=== PATIENT | male | born 1995 | race Caucasian/White ===

== ENCOUNTER 2017-07-12 18:37 | Emergency (ER) | payer OTHER ==
--- NOTE | 2017-07-12 20:04 | ED Physician Documentation ---
PD HPI BACK INJURY - Stated complaint Stated Complaint: BACK PX - History obtained from History obtained from: Patient - History of Present Illness Location: Right, Both, Lower Type of injury: Other (he was lifting about 350 lbs few days ago and felt onset of low back pain when he twisted/ not completely straight with it. Has been hurting since.) Timing - onset: How many days ago (few) Timing - duration: Days Timing - details: Waxing and waning Quality: Pain, Spasm Associated symptoms: No: Fever, Weakness, Numbness, Incontinent of urine Similar symptoms before: Has not had sx before Recently seen: Clinic (seen at [facility] and Rx Ibuprofen and chiropractic. Was improved some and then hurt more when tried to bend over and pick something light up today.) Review of Systems Constitutional: denies: Fever, Chills GI: denies: Abdominal Pain, Nausea, Vomiting : denies: Incontinent Musculoskeletal: reports: Back pain. denies: Neck pain Neurologic: denies: Focal weakness, Numbness, Near syncope PD PAST MEDICAL HISTORY - Present Medications Home Medications: Ambulatory Orders Medication Instructions Recorded Confirmed HYDROcod/ACETAM 5/325 [[place] 5/325] 1 tab PO Q6H PRN #15 tablet 07/12/17 Methocarbamol [Robaxin] 500 mg PO Q6H PRN #25 tablet 07/12/17 - Allergies Allergies/Adverse Reactions: Allergies Allergy/AdvReac Type Severity Reaction Status Date / Time No Known Drug Allergies Allergy Verified 07/12/17 18:51 Results - Vitals Vitals: Oxygen O2 Source Room air - Rads (name of study) lumbar Radiology: Prelim report reviewed, EMP read contemporaneously (no acute findings ) PD MEDICAL DECISION MAKING - ED course Complexity details: considered differential, d/w patient Departure - Departure Disposition: 01 Home, Self Care Clinical Impression: Acute lumbar myofascial strain Qualifiers: Encounter type: initial encounter Qualified Code(s): S39.012A - Strain of muscle, fascia and tendon of lower back, initial encounter Clinical Impression: (Ruled Out): Compression fracture Condition: Stable Record reviewed to determine appropriate education?: Yes Instructions: ED Sprain Strain Lumbar Prescriptions: HYDROcod/ACETAM 5/325 [[place] 5/325] 1 tab PO Q6H PRN #15 tablet PRN Reason: Pain Methocarbamol [Robaxin] 500 mg PO Q6H PRN #25 tablet PRN Reason: Spasms Comments: Light duty with limited push pull and bending as well as lifting for the next week. Continue the previously prescribed ibuprofen 2-3 times a day. Add Robaxin as needed for spasms and stiffness. Heat and gentle stretching for the low back physical treatment such as massage and chiropractic are great. Add hydrocodone if needed for back pain. Follow-up with your primary care over the next few days for reevaluation. Forms: Activity restrictions Discharge Date/Time: 07/12/17 21:10
[2017-07-12] MEDS ORDERED: HYDROcod/ACET 5/325 Prepack 6 PO ONE ×2 (20:34→20:47)
[2017-07-12] MEDS ORDERED: METHOCARBAMOL 500 MG TABLET PO STA (20:34)
[2017-07-12] MEDS ORDERED: ACETAMINOPHEN 325 MG TABLET PO STA (20:34)
[2017-07-12] MEDS ORDERED: ACETAMINOPHEN 325 MG TABLET PO ONE (20:47)
[2017-07-12] MEDS ORDERED: METHOCARBAMOL 500 MG TABLET PO ONE (20:48)
--- NOTE | 2017-07-12 21:08 | XRAY Preliminary Report ---
Exam: XR LUMBAR SPINE 2 VIEW IMPRESSION: Normal lumbar spine radiography. [facility] SITE ID: [id number]
[2017-07-12 21:10] VITALS: BP 127/78
--- NOTE | 2017-07-12 21:18 | XRAY Report ---
EXAM: LUMBOSACRAL SPINE RADIOGRAPHY EXAM DATE: 07/12/2017 09:00 PM. CLINICAL HISTORY: Low back pain after heavy lifting today. COMPARISONS: None. TECHNIQUE: 2 views. FINDINGS: Alignment: Normal. No spondylolisthesis or scoliosis. Bones: Five pdz-ctd-ovapdpt lumbar vertebral bodies are present. No fractures or bone lesions. Disks: Normal. Disk heights are maintained. Facets: No degenerative changes. Sacroiliac Joints: Unremarkable. Soft Tissues: Normal. The visualized bowel gas pattern is normal. IMPRESSION: Normal lumbar spine radiography. [facility] Referring Provider Line: [phone] SITE ID: [id number]
== END 2017-07-12 21:10 | disposition home or self-care (01) ==
LOC: ED 18:37
DX: S39.012A Strain of muscle, fascia and tendon of lower back, initial encounter (principal); X50.9XXA Other and unspecified overexertion or strenuous movements or postures, initial encounter
CPT/HCPCS: 72100; 99283; A9270

== ENCOUNTER 2018-01-02 10:06 | Emergency (ER) | payer OTHER ==
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
[2018-01-02] MEDS ORDERED: IBUPROFEN 600 MG TABLET PO STA (12:17)
[2018-01-02] MEDS ORDERED: ACETAMINOPHEN 325 MG TABLET PO STA (12:17)
[2018-01-02 13:02] VITALS: BP 120/70
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
--- NOTE | 2018-01-02 13:51 | XRAY Preliminary Report ---
Exam: XR SHOULDER 3 VIEW RT IMPRESSION: 1. No acute osseous abnormality. [facility] SITE ID: [id number]
--- NOTE | 2018-01-02 13:51 | XRAY Preliminary Report ---
Exam: XR KNEE 3 VIEW RT IMPRESSION: 1. No acute osseous abnormality. [facility] SITE ID: [id number]
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
== END 2018-01-02 13:29 | disposition home or self-care (01) ==
LOC: ED 10:06
DX: S46.911A Strain of unspecified muscle, fascia and tendon at shoulder and upper arm level, right arm, initial encounter (principal); S80.01XA Contusion of right knee, initial encounter; V03.10XA Pedestrian on foot injured in collision with car, pick-up truck or van in traffic accident, initial encounter; Y92.481 Parking lot as the place of occurrence of the external cause
CPT/HCPCS: 73030; 73562; 99283; A9270

== ENCOUNTER 2019-05-23 08:16 | Emergency (ER) | payer OTHER ==
[2019-05-23 08:35] VITALS: BP 131/69
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
== END 2019-05-23 09:46 | disposition home or self-care (01) ==
LOC: ED 08:16
DX: S30.1XXA Contusion of abdominal wall, initial encounter (principal); S30.811A Abrasion of abdominal wall, initial encounter; W20.8XXA Other cause of strike by thrown, projected or falling object, initial encounter; Y93.89 Activity, other specified
CPT/HCPCS: 99281; 99283

== ENCOUNTER 2020-04-30 09:49 | Emergency (ER) | payer OTHER ==
[2020-04-30 10:02] VITALS: BP 137/80
--- NOTE | 2020-04-30 10:53 | ED Physician Documentation ---
PD HPI BACK PAIN - Stated complaint Stated Complaint: BACK PX - Chief complaint Chief Complaint: Back Pain - History obtained from History obtained from: Patient PD PAST MEDICAL HISTORY - Past Surgical History Past Surgical History: No - Present Medications Home Medications: Ambulatory Orders Medication Instructions Recorded Confirmed Hydrocodone/Acetaminophen [[place] 1 each PO Q6H PRN #15 tablet 04/30/20 5-325 Tablet] Naproxen 500 mg PO BID #25 tablet 04/30/20 Tizanidine HCl 4 mg PO TID PRN #25 capsule 04/30/20 - Allergies Allergies/Adverse Reactions: Allergies Allergy/AdvReac Type Severity Reaction Status Date / Time No Known Drug Allergies Allergy Verified 05/23/19 08:29 - Social History Does the pt smoke?: No Smoking Status: Never smoker Does the pt drink ETOH?: No Does the pt have substance abuse?: No - Immunizations Immunizations are current?: Yes - POLST Patient has POLST: No Results - Vitals Vitals: Oxygen O2 Source Room air PD MEDICAL DECISION MAKING - ED course Complexity details: reviewed results, considered differential, d/w patient Departure - Departure Disposition: 01 Home, Self Care Clinical Impression: Low back pain Qualifiers: Chronicity: acute Back pain laterality: right Sciatica presence: without sciatica Qualified Code(s): M54.5 - Low back pain Acute lumbar myofascial strain Qualifiers: Encounter type: initial encounter Qualified Code(s): S39.012A - Strain of muscle, fascia and tendon of lower back, initial encounter Condition: Stable Record reviewed to determine appropriate education?: Yes Instructions: ED Sprain Strain Lumbar Follow-Up: [facility] [Provider Group] Prescriptions: Naproxen 500 mg PO BID #25 tablet Hydrocodone/Acetaminophen [[place] 5-325 Tablet] 1 each PO Q6H PRN #15 tablet PRN Reason: Pain Tizanidine HCl 4 mg PO TID PRN #25 capsule PRN Reason: Spasms Comments: Heat and gentle stretching for the back to reduce spasming. Off work today and tomorrow and then light duty for another 5 days. We will try different anti-inflammatories and muscle relaxants and add pain medicine if needed. Naproxen twice daily with food. Add tizanidine muscle relaxant 3 times a day. To that add Tylenol or hydrocodone if needed for worse pain. Physical treatment such as massage and chiropractic are quite good for this. Follow-up with your primary care over the next several days for reevaluation. Forms: Activity restrictions Discharge Date/Time: 04/30/20 12:30
[2020-04-30] MEDS ORDERED: KETOROLAC 30 MG/ML VIAL IM STA (11:31)
[2020-04-30] MEDS ORDERED: HYDROcod/ACETAM 5/325 MG TABLET PO STA (11:31)
[2020-04-30] MEDS ORDERED: methocarbamoL 500 MG TABLET PO STA (11:31)
--- NOTE | 2020-04-30 11:54 | CT Report ---
PROCEDURE: LUMBAR SPINE WO INDICATIONS: back pain for 7 weeks, worse today TECHNIQUE: Noncontrast 3 mm thick sections acquired from the T12 level to the sacrum. Sagittal and coronal refo rmats were constructed. For radiation dose reduction, the following was used: automated exposure co ntrol, adjustment of mA and/or kV according to patient size. COMPARISON: Correlation is made with prior lumbar plain films 07/12/2017 FINDINGS: Image quality: Excellent. Bones: There is normal bony alignment. No acute vertebral body compression fractures. No suspiciou s lytic or blastic bony lesions. Central spinal caliber is of normal overall caliber. No pars defec ts. T12-L1: Normal in appearance. L1-L2: Normal in appearance. L2-L3: Normal in appearance. L3-L4: The disc height is well-preserved. Mild to moderate disc bulge is seen. There is mild to mod erate bilateral neuroforaminal narrowing seen. Mild to moderate central canal narrowing is seen. L4-L5: The disc height is relatively well preserved. Mild disc bulge is seen, with a mild central d isc extrusion. There is mild to moderate right-sided and moderate left-sided neuroforaminal narrowing seen. Moderate central canal narrowing is seen. L5-S1: The disc height is well-preserved. Moderate disc bulge is seen at this level. There is mod erate right-sided and at least moderate left-sided neuroforaminal narrowing seen. Mild to moderate ce ntral canal narrowing is seen. Soft tissues: No retroperitoneal masses or hematomas. Visualized aorta is normal in caliber. IMPRESSION: Premature lower lumbar spine degenerative changes are seen. If it would be helpful for clinical management decision making, please consider a dedicated lumbar sp ine MRI for further evaluation (assuming that there is no contraindication). Reviewed by: Rogelio Leroy MD on 04/30/2020 10:53 AM SRINIVASA Approved by: Rogelio Leroy MD on 04/30/2020 10:53 AM SRINIVAS[facility] Station ID: [id number]
== END 2020-04-30 12:30 | disposition home or self-care (01) ==
LOC: ED 09:49
DX: S39.012A Strain of muscle, fascia and tendon of lower back, initial encounter (principal)
CPT/HCPCS: 72131; 96372; 99284; A9270

== ENCOUNTER 2020-05-14 09:01 | Outpatient (CLI) | payer OTHER ==
--- NOTE | 2020-05-14 10:26 | MRI Report ---
PROCEDURE: Lumbar Spine W/O INDICATIONS: DORSALGIA TECHNIQUE: Noncontrast sagittal T1 spin echo and T2 fast echo, sagittal STIR, axial T1 and T2 fast spin echo thr ough the lumbar spine. In cases with scoliosis, additional coronal T2 fast spin echo may be performe d. COMPARISON: 04/30/[address] FINDINGS: Image quality: Excellent. Alignment and Curvature: Normal alignment of the lumbar spine. Bone Marrow: Normal bone marrow signal intensity. No suspicious focal marrow signal abnormality or annie ne marrow edema. Vertebral body heights maintained. Spinal Cord: Normal position and appearance of the conus. Normal signal of the partially visualized d istal cord. Cauda equina is unremarkable. Regional Soft Tissues: Prevertebral and paraspinal soft tissues are within normal limits. The include d unenhanced retroperitoneal visceral structures demonstrate no acute finding. T12-L1: No spinal canal or neural foraminal stenosis. No significant degenerative changes. L1-L2: No spinal canal or neural foraminal stenosis. No significant degenerative changes. L2-L3: No spinal canal or neural foraminal stenosis. No significant degenerative changes. L3-L4: No spinal canal or neural foraminal stenosis. No significant degenerative changes. L4-L5: Disc desiccation and height loss with circumferential disc bulge. A superimposed central/lef t paracentral disc protrusion flattens and indents the ventral thecal sac without mass effect upon th e traversing L5 nerve roots. Foraminal components of the disc bulge combine with mild facet hypertrop hy to produce mild right and moderate left foraminal stenosis. L5-S1: Disc desiccation and height loss with circumferential disc bulge. A superimposed broad-based posterior disc protrusion flattens and indents the ventral thecal sac with mild mass effect upon the traversing S1 nerve roots bilaterally. Foraminal components of the disc bulge contribute to moderate neural foraminal narrowing, left greater than right. IMPRESSION: Degenerative changes at L4-L5 and L5-S1 as described above. No evidence of focal nerve r oot impingement although correlation for any potential corresponding radicular symptoms is requested. Reviewed by: Daniel Ramos MD on 05/14/2020 10:25 AM PDT Approved by: Daniel Ramos MD on 05/14/2020 10:25 AM PDT Station ID: [id number]
== END 2020-05-14 09:02 | disposition home or self-care (01) ==
LOC: DI 09:01
DX: M51.27 Other intervertebral disc displacement, lumbosacral region (principal); M62.830 Muscle spasm of back
CPT/HCPCS: 72148

== ENCOUNTER 2021-12-01 12:57 | Emergency (ER) | payer OTHER ==
[2021-12-01] MEDS ORDERED: HYDROcod/ACETAM 5/325 MG TABLET PO STA (16:17)
[2021-12-01] MEDS ORDERED: predniSONE 20 MG TABLET PO STA (16:17)
[2021-12-01] MEDS ORDERED: KETOROLAC 60 MG/2 ML VIAL IM STA (16:17)
--- NOTE | 2021-12-01 16:20 | ED Physician Documentation ---
History of Present Illness - Stated complaint Stated Complaint: BACK PX - Chief complaint Chief Complaint: Back Pain - History obtained from History obtained from: Patient - Additonal information Additional information: The patient comes to the emergency department with chief complaint of exacerbation of chronic low back pain. He states that he does not really know what flared it up. 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 He states that 2 weeks ago, he began to notice that his back pain is flaring up. He does not really know why and states that he did not have any distinct injury. The patient states that he has intermittent numbness down his right leg but that is been going on since his original injury 2 years ago. The patient states that sometimes his left leg feels weak and heavy, but that this seems to get better when he takes a muscle relaxer or something for pain. No other complaints at this time. The patient denies any difficulty controlling bowels or bladder. Review of Systems Ten Systems: 10 systems reviewed and negative Constitutional: reports: Reviewed and negative Eyes: reports: Reviewed and negative Ears: reports: Reviewed and negative Nose: reports: Reviewed and negative Throat: reports: Reviewed and negative Cardiac: reports: Reviewed and negative Respiratory: reports: Reviewed and negative GI: reports: Reviewed and negative : reports: Reviewed and negative Skin: reports: Reviewed and negative Musculoskeletal: reports: Back pain, Extremity pain Neurologic: reports: Reviewed and negative Psychiatric: reports: Reviewed and negative Endocrine: reports: Reviewed and negative Immunocompromised: reports: Reviewed and negative PD PAST MEDICAL HISTORY - Past Surgical History Past Surgical History: No - Present Medications Home Medications: Ambulatory Orders Medication Instructions Recorded Confirmed Hydrocodone/Acetaminophen [[place] 1 each PO Q6H PRN #15 tablet 04/30/20 5-325 Tablet] Naproxen 500 mg PO BID #25 tablet 04/30/20 Tizanidine HCl 4 mg PO TID PRN #25 capsule 04/30/20 Cyclobenzaprine [Flexeril] 10 mg PO TID PRN #20 tablet 12/01/21 HYDROcod/ACETAM 5/325 [[place] 5/325] 1 - 2 tablet PO Q6H PRN #14 tablet 12/01/21 predniSONE [Deltasone] 60 mg PO DAILY 5 Days #15 tablet 12/01/21 - Allergies Allergies/Adverse Reactions: Allergies Allergy/AdvReac Type Severity Reaction Status Date / Time No Known Drug Allergies Allergy Verified 12/01/21 13:16 - Social History Does the pt smoke?: No Smoking Status: Never smoker Does the pt drink ETOH?: No Does the pt have substance abuse?: No - Immunizations Immunizations are current?: Yes - POLST Patient has POLST: No PD ED PE NORMAL - Vitals Vital signs reviewed: Yes - General General: Alert and oriented X 3, No acute distress, Well developed/nourished - HEENT HEENT: Atraumatic, PERRL, EOMI, Moist mucous membranes - Neck Neck: Supple, no meningeal sign - Respiratory Respiratory: No respiratory distress - Abdomen Abdomen: Soft, Non tender, Non distended - Back Back: Other (Mild tenderness palpation lower lumbar spine and sacral spine. No step-off.) - Derm Derm: Normal color, Warm and dry, No rash - Extremities Extremities: No deformity, No edema - Neuro Neuro: Alert and oriented X 3, trauma registrar 2-12 intact, No motor deficit, No sensory deficit, Normal speech - Psych Psych: Normal mood, Normal affect Results - Vitals Vitals: Vital Signs - 24 hr 12/01/21 13:13 Temperature 36.9 C Heart Rate 86 Respiratory 16 Rate Blood Pressure 142/85 H O2 Saturation 97 Oxygen O2 Source Room air PD MEDICAL DECISION MAKING - ED course Complexity details: considered differential, d/w patient ED course: The patient was treated symptomatically in the emergency department. We discussed that the patient needs to follow-up with his primary care physician to discuss whether he should have MRI again at this point. He does not have any difficulty controlling bowels or bladder at this point, and is ambulatory on a narrow-based gait in the emergency department. We have discussed symptomatic management at home and the usual indications for return. Departure - Departure Disposition: 01 Home, Self Care Clinical Impression: Lumbar strain Qualifiers: Encounter type: initial encounter Qualified Code(s): S39.012A - Strain of muscle, fascia and tendon of lower back, initial encounter Condition: Stable Instructions: ED Sprain Strain Lumbar Prescriptions: predniSONE [Deltasone] 60 mg PO DAILY 5 Days #15 tablet Cyclobenzaprine [Flexeril] 10 mg PO TID PRN #20 tablet PRN Reason: Spasms HYDROcod/ACETAM 5/325 [[place] 5/325] 1 - 2 tablet PO Q6H PRN #14 tablet PRN Reason: Pain Comments: Your prescription has been electronically transmitted to [facility] in [place].
[2021-12-01 16:45] VITALS: BP 142/86
== END 2021-12-01 16:45 | disposition home or self-care (01) ==
LOC: ED 12:57
DX: S39.012A Strain of muscle, fascia and tendon of lower back, initial encounter (principal); X58.XXXA Exposure to other specified factors, initial encounter
CPT/HCPCS: 96372; 99283; 99284; A9270; J7512